=== PATIENT | female | born 1960 | race Hispanic/Latino ===

== ENCOUNTER 2022-12-23 09:22 | Outpatient (CLI) | payer MEDICARE, MEDICAID | END 2022-12-23 09:23 | disposition home or self-care (01) | LOC: MRI 09:22 | PROVIDERS: ATTEND Family Medicine | DX: R51.9 Headache, unspecified (principal); J34.9 Unspecified disorder of nose and nasal sinuses | CPT/HCPCS: 70551 ==

== ENCOUNTER 2023-03-03 11:00 | Inpatient (IN) | payer MEDICARE, MEDICAID ==
[2023-03-03 11:25] LABS: #Eosinphils 0.3 thou/uL (0.0-0.7); #Monocytes 0.5 thou/uL (0.11-0.59); #Neutrophils 6.3 thou/uL (1.40-6.50); %Basophils 0.5 % (0.0-1.0); %Eosinophils 3.3 % (0.0-10.0); %Lymphocytes 11.4 % (21.0-51.0); %Monocytes 6.3 % (0.0-10.0); %Neutrophils 78.2 % (42.0-75.0); Hemoglobin 12.3 g/dL (12.0-16.0); Mean Corpuscular HGB CONC 32.3 g/dL (32.0-36.0); Mean Corpuscular Volume 99.2 fl (78.0-98.0); Platelet Count 95 10x3/uL (130-400); RBC Distribution Width 13.4 % (11.5-14.5); Red Blood Cell (RBC) Count 3.84 mill/uL (4.20-5.40)
[2023-03-03 11:49] LABS: ALT (SGPT) 8 U/L (8-55); AST (SGOT) 21 U/L (5-34); Albumin 4.1 g/dL (3.4-4.8); Alkaline Phosphatase 91 U/L (40-110); Anion Gap 12 mmol/L (10-20); BUN (Urea Nitrogen) 14 mg/dL (9.8-20.1); Bilirubin, Total 0.8 mg/dL (0.2-1.2); Calc. Creatinine Clearance 0 mL/min (70-130); Calcium 9.6 mg/dL (7.8-10.44); Carbon Dioxide 31 mmol/L (23-31); Chloride 95 mmol/L (98-107); Estimated GFR 80; Globulin 3.9 g/dL (2.4-3.5); Glucose 93 mg/dL (80-115); Potassium 4.1 mmol/L (3.5-5.1); Sodium 134 mmol/L (136-145)
[2023-03-03 11:56] LABS: CellaVision Operator ID LAB.GE; Platelet Adequacy Comment Platelets Decreased; Polychromasia SLIGHT = 2-3 cells HPF (0-2)
[2023-03-03] MEDS ORDERED: Ondansetron PF 4 MG/2 ML Vial IVP PRN (15:03)
[2023-03-03] MEDS ORDERED: Acetaminophen 650 MG Suppository PR PRN (15:03)
[2023-03-03] MEDS ORDERED: Acetaminophen 325 MG TAB PO PRN (15:03)
[2023-03-03] MEDS ORDERED: Ondansetron ODT 4 MG TAB PO PRN (15:03)
[2023-03-03] MEDS ORDERED: methylPREDNISolone Sod Succ/PF 125 MG/2 ML VIAL IVP SCH (15:05)
[2023-03-03] MEDS ORDERED: Ipratropium/Albuterol 3 ML NEB NEB PRN (15:06)
[2023-03-03] MEDS ORDERED: Pantoprazole 40 MG VIAL IVP SCH (15:07)
[2023-03-03] MEDS ORDERED: Electrolyte Replacement Protocol 1 EACH FS SCH (15:15)
[2023-03-03 19:34] VITALS: BMI 20.1
[2023-03-04 05:08] LABS: #Neutrophils 2.7 thou/uL (1.40-6.50); %Basophils 0.3 % (0.0-1.0); %Lymphocytes 11.3 % (21.0-51.0); %Monocytes 1.3 % (0.0-10.0); %Neutrophils 86.5 % (42.0-75.0); Mean Corpuscular HGB CONC 32.2 g/dL (32.0-36.0); Mean Corpuscular Hemoglobin 31.5 pg (27.0-31.0); Mean Corpuscular Volume 97.9 fl (78.0-98.0); Mean Platelet Volume 13.1 fL (7.4-10.4); RBC Distribution Width 13.2 % (11.5-14.5); Red Blood Cell (RBC) Count 3.81 mill/uL (4.20-5.40); White Blood Cell (WBC) Count 3.1 10x3/uL (4.8-10.8)
[2023-03-04 05:10] LABS: Platelet Count 85 10x3/uL (130-400)
[2023-03-04 05:23] LABS: Anion Gap 11 mmol/L (10-20); BUN (Urea Nitrogen) 14 mg/dL (9.8-20.1); Calc. Creatinine Clearance 67 mL/min (70-130); Calcium 9.3 mg/dL (7.8-10.44); Carbon Dioxide 31 mmol/L (23-31); Chloride 95 mmol/L (98-107); Estimated GFR 86; Glucose 116 mg/dL (80-115); Magnesium 1.9 mg/dL (1.6-2.6); Potassium 4.5 mmol/L (3.5-5.1); Sodium 132 mmol/L (136-145)
[2023-03-04] MEDS: Levothyroxine Sodium 50 MCG TAB PO SCH (05:26)
[2023-03-04] MEDS ORDERED: Magnesium 2 GM/50 ML(in water) 2 GM in Premix Bag 1 BAG IVPB SCH ×2 (05:45→08:00)
[2023-03-04] MEDS: methylPREDNISolone Sod Succ 40 MG VIAL IVP SCH ×3 (08:25→20:48)
[2023-03-04] MEDS ORDERED: Iopamidol 370 76% 100 ML VIAL ONE (15:30)
[2023-03-04] MEDS: Calcium Carbonate 500 MG TAB PO SCH (18:10)
[2023-03-04] MEDS: Cefepime 1 GM in Sodium Chloride 0.9% 100 ML IVPB SCH (23:42)
[2023-03-05] MEDS: Levothyroxine Sodium 50 MCG TAB PO SCH (05:50)
[2023-03-05] MEDS: Calcium Carbonate 500 MG TAB PO SCH ×2 (08:58→16:16)
[2023-03-05] MEDS ORDERED: Aspirin 81 mg Enteric Coated Tablet PO SCH (09:00)
[2023-03-05] MEDS ORDERED: TADALAFIL 20 MG PO SCH (09:00)
[2023-03-05] MEDS ORDERED: Furosemide 80 MG TAB PO SCH (09:00)
[2023-03-05] MEDS ORDERED: SELEXIPAG 800 MCG PO SCH (09:00)
[2023-03-05] MEDS: methylPREDNISolone Sod Succ 40 MG VIAL IVP SCH ×2 (09:01→16:16)
[2023-03-05] MEDS: Cefepime 1 GM in Sodium Chloride 0.9% 100 ML IVPB SCH (12:06)
[2023-03-05 15:49] VITALS: BP 97/56; TEMP 97.3
== END 2023-03-05 18:29 | disposition home or self-care (01) | DRG 196 ==
LOC: ERS 11:00 → ERHOLD 15:00 → 2SW 17:24 → OBSVTOIN 03-04 09:36
PROVIDERS: ADMIT Internal Medicine; ATTEND Internal Medicine
DX: J84.10 Pulmonary fibrosis, unspecified (principal); J18.9 Pneumonia, unspecified organism; J96.21 Acute and chronic respiratory failure with hypoxia; M34.81 Systemic sclerosis with lung involvement; E27.49 Other adrenocortical insufficiency; I50.32 Chronic diastolic (congestive) heart failure; J44.9 Chronic obstructive pulmonary disease, unspecified; I27.21 Secondary pulmonary arterial hypertension; Z66 Do not resuscitate; I11.0 Hypertensive heart disease with heart failure; K74.60 Unspecified cirrhosis of liver; D69.6 Thrombocytopenia, unspecified; I27.20 Pulmonary hypertension, unspecified; E03.9 Hypothyroidism, unspecified; I48.0 Paroxysmal atrial fibrillation; Z88.5 Allergy status to narcotic agent; Z79.51 Long term (current) use of inhaled steroids; Z99.81 Dependence on supplemental oxygen; Z79.82 Long term (current) use of aspirin; Z79.890 Hormone replacement therapy; Z79.899 Other long term (current) drug therapy; Z90.710 Acquired absence of both cervix and uterus; Z90.49 Acquired absence of other specified parts of digestive tract; Z95.1 Presence of aortocoronary bypass graft; Z98.890 Other specified postprocedural states; Z87.891 Personal history of nicotine dependence
CPT/HCPCS: 36415; 71045; 71275; 80048; 80053; 83735; 83880; 84439; 84443; 84481; 84484; 85025; 85379; 87040; 93005; 93306; 94760; 96374; 96375; 96376; G0378; J0692; J2920; J2930; J3475; J3490; Q9967

== ENCOUNTER 2023-04-29 10:40 | Outpatient (CLI) | payer MEDICARE, MEDICAID ==
[2023-04-29] MEDS ORDERED: Iopamidol 370 76% 100 ML VIAL ONE (12:44)
== END 2023-04-29 10:41 | disposition home or self-care (01) ==
LOC: CT 10:40
PROVIDERS: ATTEND Family Medicine
DX: R91.8 Other nonspecific abnormal finding of lung field (principal); K74.60 Unspecified cirrhosis of liver; I25.10 Atherosclerotic heart disease of native coronary artery without angina pectoris; I51.7 Cardiomegaly; I28.8 Other diseases of pulmonary vessels
CPT/HCPCS: 71260; 82565